=== PATIENT | male | born 1965 | race African-American/Black ===

== ENCOUNTER 2020-02-29 23:31 | Emergency (ER) | payer MEDICAID ==
[~2020-02-29] VITALS: Ht 182.9 cm; Wt 105.0 kg
[2020-03-01 00:26] LABS: BASOPHILS % 0.1 % (0.0-2.0); EOSINOPHILS % 0.1 % (0.0-5.0); HEMATOCRIT. 40.3 % (42.0-52.0); HEMOGLOBIN. 13.5 g/dL (14.0-18.0); LYMPHOCYTES % 12.1 % (20.0-50.0); MEAN CORPUSCULAR HEMOGLOBIN 32.9 pg (28.0-32.0); MEAN CORPUSCULAR VOLUME 98.4 fL (80.0-94.0); MEAN PLATELET VOLUME 9.6 fl (7.4-10.4); MONOCYTES % 6.9 % (2.0-8.0); NEUTROPHILS % 80.8 % (40.0-76.0); PLATELET 82 x1000/uL (130-400); RED CELL DISTRIBUTION WIDTH 13.3 % (11.6-14.6)
[2020-03-01 00:31] LABS: CHLORIDE 97 mEq/L (98-107); CLARITY URINE CLEAR (CLEAR); COLOR URINE YELLOW (YELLOW); KETONES URINE NEGATIVE (NEGATIVE); LEUKOCYTE ESTERASE URINE NEGATIVE (NEGATIVE); NITRITE URINE NEGATIVE (NEGATIVE); OCCULT BLOOD URINE NEGATIVE (NEGATIVE); PH URINE 7.5 (4.5-8.0); PROTEIN URINE NEGATIVE (NEGATIVE); SPECIFIC GRAVITY URINE 1.006 (1.005-1.030)
[2020-03-01] MEDS ORDERED: AMLODIPINE 5MG TABLET PO ONE (01:30)
[2020-03-01] MEDS ORDERED: DEXT 5%/0.9% NACL 1,000 ML IV ONE (01:30)
[2020-03-01] MEDS ORDERED: THIAMINE HCL 100MG TABLET PO ONE (03:30)
[2020-03-01] MEDS ORDERED: FOLIC ACID 1MG TABLET PO ONE (03:30)
[2020-03-01 03:50] VITALS: BP 149/99
== END 2020-03-01 03:50 | disposition home or self-care (01) ==
LOC: ER 23:44
DX: E11.649 Type 2 diabetes mellitus with hypoglycemia without coma (principal); R53.1 Weakness; I10 Essential (primary) hypertension
CPT/HCPCS: 36415; 80053; 81003; 82962; 85025; 93005; 99284; J7042

== ENCOUNTER 2020-08-15 12:35 | Emergency (ER) | payer MEDICAID ==
[~2020-08-15] VITALS: Ht 180.3 cm; Wt 91.0 kg
[~2020-08-15 12:35] MED LIST: METO-396 PO
[2020-08-15 13:21] VITALS: BP 173/105
[2020-08-15] MEDS ORDERED: CEPH500C2 MT (16:39)
[2020-08-15] MEDS ORDERED: BO1 TP (16:39)
[2020-08-15] MEDS ORDERED: SULF1TAB48 MT (16:39)
== END 2020-08-15 16:54 | disposition home or self-care (01) ==
LOC: ER 12:35
DX: L03.115 Cellulitis of right lower limb (principal); I10 Essential (primary) hypertension
CPT/HCPCS: 99281

== ENCOUNTER 2020-08-18 10:02 | Emergency (ER) | payer MEDICAID ==
[~2020-08-18] VITALS: Ht 180.3 cm; Wt 86.0 kg
[~2020-08-18 10:02] MED LIST changes: +BO1 TP; +CEPH500C2 MT; +SULF1TAB48 MT
[2020-08-18 10:13] VITALS: BP 140/98
[2020-08-18] MEDS ORDERED: TOPUD PO (10:29)
[2020-08-18] MEDS ORDERED: CLIN300C12 PO (10:29)
== END 2020-08-18 10:53 | disposition home or self-care (01) ==
LOC: ER 10:02
DX: L03.115 Cellulitis of right lower limb (principal); I10 Essential (primary) hypertension; Z79.899 Other long term (current) drug therapy
CPT/HCPCS: 99281; Z7610; A4315

== ENCOUNTER 2020-09-20 09:35 | Emergency (ER) | payer MEDICAID ==
[~2020-09-20] VITALS: Ht 185.4 cm; Wt 100.0 kg
[~2020-09-20 09:35] MED LIST changes: +CLIN300C12 PO; +TOPUD PO
[2020-09-20 09:45] VITALS: BP 168/100
[2020-09-20] MEDS ORDERED: CEPH500C2 MT (10:35)
[2020-09-20] MEDS ORDERED: TRAM50TA3 MT (10:35)
[2020-09-20] MEDS ORDERED: [UNRECOGNIZED DRUG - CODE] TP (10:37)
== END 2020-09-20 10:50 | disposition home or self-care (01) ==
LOC: ER 09:35
DX: R21 Rash and other nonspecific skin eruption (principal); L30.1 Dyshidrosis [pompholyx]; B35.9 Dermatophytosis, unspecified; L08.9 Local infection of the skin and subcutaneous tissue, unspecified; I10 Essential (primary) hypertension
CPT/HCPCS: 99283